=== PATIENT | male | born 1965 | race Caucasian/White ===

== ENCOUNTER 2017-02-19 08:36 | Emergency (ER) | payer MEDICAID ==
[~2017-02-19] VITALS: Ht 175.3 cm; Wt 95.8 kg
--- NOTE | 2017-02-19 08:39 | NUR ---
Patient ambulated to bed 08.
[2017-02-19 08:41] VITALS: BP 136/93
[2017-02-19] MEDS ORDERED: KETOROLAC 60 MG/2 ML VIAL IM ONE (08:50)
[2017-02-19] MEDS ORDERED: oxyCODONE/APAP 5/325 MG 1 TAB TAB PO ONE (08:50)
--- NOTE | 2017-02-19 08:52 | NUR ---
Dr. Morales at bedside to evaluate patient.
--- NOTE | 2017-02-19 08:53 | NUR ---
XRAY at bedside.
--- NOTE | 2017-02-19 09:10 | NUR ---
10LBS ATTACHED TO PT'S LEFT HAND WRIST FOREARM --AFTER PT PLACED ON PRONE POSITION , ALLOWED LUE TO HAND DOWN GUERNEY---MAINTAINS +PMS PT TOLERATING WITH MINIMAL ADDED DISCOMFORT
--- NOTE | 2017-02-19 09:50 | NUR ---
PT CONFIRMED INSTANT RELIEF OF PAIN TO L SHOULDER. MD NOTIFIED---X-RAY CALLED TO BEDSIDE----PT SAT UP AND PLACED IN SHOULDER IMMOBILIZER +2 RADIAL PULSE <3 SEC CAP REFILL AND SENSATION INTACT MAINTAINED
[2017-02-19 10:54] VITALS: BP 132/82
--- NOTE | 2017-02-19 10:56 | NUR ---
X-RAY DISC AND DC INSTRUCTIONS HANDED TO PT---F/U WITH PMD MONDAY, NO HEAVY LIFTING PULLING PUSHING TILL CLEARED BY PMD---MAINTAING SLING IN PLACE--ICE SHOULDER FREQUENTLY X 2-3 DAYS 5-15 MINS AT A TIME.
== END 2017-02-19 10:54 | disposition home or self-care (01) ==
LOC: MED 08:36
DX: S43.085A Other dislocation of left shoulder joint, initial encounter (principal); V19.88XA Pedal cyclist (driver) (passenger) injured in other specified transport accidents, initial encounter; Y93.89 Activity, other specified; Y92.89 Other specified places as the place of occurrence of the external cause; Y99.8 Other external cause status
CPT/HCPCS: 23650; 73030; 96372; 99284; J1885